=== PATIENT | female | born 2000 | race Caucasian/White ===

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

== ENCOUNTER 2020-04-07 11:09 | Emergency (ER) | payer OTHER ==
[2020-04-07] MEDS ORDERED: Sodium Chloride 0.9% 10 ML Syringe FLUSH PRN (11:23)
[2020-04-07] MEDS ORDERED: Lactated Ringers 1,000 ML IV ONE (11:23)
[2020-04-07] MEDS ORDERED: Ondansetron 4 MG/2 ML SDV IVPUSH ONE (11:24)
[2020-04-07] MEDS ORDERED: fentaNYL 100 MCG/2 ML SDV IVPUSH ONE ×2 (11:24→12:10)
--- NOTE | 2020-04-07 11:29 | EDM.PDOC ---
ED HPI GENERAL MEDICAL PROBLEM - General Chief Complaint: Abdominal Pain Stated Complaint: STOMACH PAIN Time Seen by Provider: 04/07/20 11:18 Source of Information: Reports: Patient - History of Present Illness INITIAL COMMENTS - FREE TEXT/NARRATIVE: Denisse is a 20 y/o female who comes to the ER with complaints of RLQ abdominal pain that started about 30 minutes prior to arrival. She rates the pain 9/10 and sharp and constant. She has been having irregular vaginal bleeding for the last 2 weeks. She is currently on OCPs and has been for the last 13 months. She is nauseated, but has not vomited. No fever. Right Lower Abdomen Pain Score (Numeric/FACES): 9 - Related Data Allergies Allergy/AdvReac Type Severity Reaction Status Date / Time Sulfa (Sulfonamide Allergy Hives Verified 04/07/20 11:23 Antibiotics) Home Meds: Home Meds FLUoxetine HCl [Prozac] 20 mg PO DAILY 04/07/20 [History] Hydrocodone/Acetaminophen [Hydrocodon-Acetaminophen 5-325] 1 - 2 each PO Q6H #30 tablet 04/07/20 [Rx] Ondansetron [Ondansetron ODT] 4 mg PO Q6H PRN #15 tab.rapdis 04/07/20 [Rx] Tamsulosin [Flomax] 0.4 mg PO DAILY #30 cap.er 04/07/20 [Rx] Past Medical History - Past Health History Medical/Surgical History: Denies Medical/Surgical History Psychiatric History: Reports: Depression Review of Systems - Review of Systems Review Of Systems: See Below Constitutional: Reports: No Symptoms Eyes: Reports: No Symptoms Ears: Reports: No Symptoms Nose: Reports: No Symptoms Mouth/Throat: Reports: No Symptoms Respiratory: Reports: No Symptoms Cardiovascular: Reports: No Symptoms GI/Abdominal: Reports: Abdominal Pain, Nausea Genitourinary: Reports: Vaginal Bleeding Musculoskeletal: Reports: No Symptoms Skin: Reports: No Symptoms Neurological: Reports: No Symptoms Psychiatric: Reports: No Symptoms ED EXAM, GENERAL - Physical Exam Exam: See Below General Appearance: Alert, WD/WN, No Apparent Distress (Young adult female, appears to be in pain and holding her abdomen when walking.) Ears: Hearing Grossly Normal Nose: Normal Inspection Throat/Mouth: Normal Voice Head: Atraumatic, Normocephalic Respiratory/Chest: No Respiratory Distress, Lungs Clear, Normal Breath Sounds Cardiovascular: Normal Peripheral Pulses, Regular Rate, Rhythm GI/Abdominal: Soft, Guarding, Tender (RUQ/RLQ). No: Mass (Female) Exam: Deferred Rectal (Female) Exam: Deferred Back Exam: CVA Tenderness (R) (mild) Extremities: Normal Inspection Neurological: Alert, Oriented, CN II-XII Intact, Normal Cognition Psychiatric: Normal Affect, Normal Mood Skin Exam: Warm, Dry, Intact, Normal Color Lymphatic: No Adenopathy Course - Vital Signs Text/Narrative:: 1118 The patient was seen by the [facility]. Labs ordered. She was given a liter of LR, Fentanyl 100mcg IVP and Zofran 4 mg IVP. 1210 Pain returning now. Toradol 30mg IVP and Fentanyl 50mcg IVP ordered. CT ordered due to pain and no US available. 1315 CT results reviewed, note 3.5mm renal calculus in the right distal ureter. Results discussed with patient. Will put her on Flomax and pain meds and then discharge to home. As far as the irregular vaginal bleeding, her HCG is negative today. She is advised to continue OCPs and if the irregular bleeding persists into her next cycle, to follow up with her OB provider as she may need a pelvic US. She was given discharge instructions and left the ER in stable condition after written instructions were given. Last Recorded V/S: Last Vital Signs Temp 36.7 C 04/07/20 11:13 Pulse 89 04/07/20 11:13 Resp 18 04/07/20 11:13 BP 118/83 04/07/20 11:13 Pulse Ox 100 04/07/20 11:13 - Orders/Labs/Meds Orders: Active Orders 24 hr Category Date Time Status CULTURE URINE [RM] Stat Lab 04/07/20 11:43 Received Sodium Chloride 0.9% [Saline Flush] Med 04/07/20 11:23 Active 10 ml FLUSH ASDIRECTED PRN Saline Lock Insert [OM.PC] Stat Oth 04/07/20 11:23 Ordered Medication Orders Sodium Chloride (Saline Flush) 10 ml FLUSH ASDIRECTED PRN PRN Reason: Keep Vein Open Labs: Laboratory Tests 04/07/20 04/07/20 04/07/20 Range/Units 11:40 11:40 11:43 WBC 6.9 (4.0-10.0) x10^3/uL RBC 4.06 (4.00-5.50) x10^6/uL Hgb 12.3 D (12.0-16.0) g/dL Hct 36.4 (33.0-47.0) % MCV 89.7 D (78.0-93.0) fL MCH 30.3 (26.0-32.0) pg MCHC 33.8 (32.0-36.0) g/dL RDW Coeff of [place] 12.7 (10.0-15.0) % Plt Count 276 (130-400) x10^3/uL Neut % (Auto) 60.2 (50.0-80.0) % Lymph % (Auto) 28.1 (25.0-50.0) % [place] % (Auto) 6.2 (2.0-11.0) % Eos % (Auto) 5.4 H (0.0-4.0) % Baso % (Auto) 0.1 L (0.2-1.2) % Sodium 139 (136-145) mmol/L Potassium 3.6 (3.5-5.1) mmol/L Chloride 104 (98-107) mmol/L Carbon Dioxide 28 (21-32) mmol/L Anion Gap 10.6 (10-20) mmol/L BUN 9 (7-18) mg/dL Creatinine 1.0 (0.55-1.02) mg/dL Est Cr Clr Drug Dosing TNP Estimated GFR (MDRD) > 60 Glucose 81 (74-106) mg/dL Calcium 8.9 (8.5-10.1) mg/dL Corrected Calcium 9.14 (8.5-10.1) mg/dL Total Bilirubin 0.4 (0.2-1.0) mg/dL AST 16 (15-37) U/L ALT 19 (14-59) U/L Alkaline Phosphatase 43 L (46-116) U/L Total Protein 7.5 (6.4-8.2) g/dL Albumin 3.7 (3.4-5.0) g/dL Globulin 3.8 Albumin/Globulin Ratio 0.97 Urine Color Yellow (YELLOW) Urine Appearance Turbid H (CLEAR) Urine pH 7.0 (5.0-8.0) Ur Specific [employer] 1.025 Urine Protein Trace H (NEGATIVE) mg/dL Urine Glucose (UA) Negative (NEGATIVE) mg/dL Urine Ketones Negative (NEGATIVE) mg/dL Urine Occult Blood Moderate H (NEGATIVE) Urine Nitrite Negative (NEGATIVE) Urine Bilirubin Negative (NEGATIVE) Urine Urobilinogen 1.0 (0.2) EU/dL Ur Leukocyte Esterase Trace H (NEGATIVE) U Hyaline Cast (Auto) Few Urine RBC 5-10 H (NOT SEEN) /HPF Urine WBC 5-10 H (NOT SEEN) /HPF Ur Squamous Epith Cells Many H (NEGATIVE) /HPF Urine Bacteria Rare (NEGATIVE) /HPF Urine Mucus Moderate H (NEGATIVE) /LPF Urine HCG, Qual (NEGATIVE) 04/07/20 Range/Units 11:43 WBC (4.0-10.0) x10^3/uL RBC (4.00-5.50) x10^6/uL Hgb (12.0-16.0) g/dL Hct (33.0-47.0) % MCV (78.0-93.0) fL MCH (26.0-32.0) pg MCHC (32.0-36.0) g/dL RDW Coeff of [place] (10.0-15.0) % Plt Count (130-400) x10^3/uL Neut % (Auto) (50.0-80.0) % Lymph % (Auto) (25.0-50.0) % [place] % (Auto) (2.0-11.0) % Eos % (Auto) (0.0-4.0) % Baso % (Auto) (0.2-1.2) % Sodium (136-145) mmol/L Potassium (3.5-5.1) mmol/L Chloride (98-107) mmol/L Carbon Dioxide (21-32) mmol/L Anion Gap (10-20) mmol/L BUN (7-18) mg/dL Creatinine (0.55-1.02) mg/dL Est Cr Clr Drug Dosing Estimated GFR (MDRD) Glucose (74-106) mg/dL Calcium (8.5-10.1) mg/dL Corrected Calcium (8.5-10.1) mg/dL Total Bilirubin (0.2-1.0) mg/dL AST (15-37) U/L ALT (14-59) U/L Alkaline Phosphatase (46-116) U/L Total Protein (6.4-8.2) g/dL Albumin (3.4-5.0) g/dL Globulin Albumin/Globulin Ratio Urine Color (YELLOW) Urine Appearance (CLEAR) Urine pH (5.0-8.0) Ur Specific [employer] Urine Protein (NEGATIVE) mg/dL Urine Glucose (UA) (NEGATIVE) mg/dL Urine Ketones (NEGATIVE) mg/dL Urine Occult Blood (NEGATIVE) Urine Nitrite (NEGATIVE) Urine Bilirubin (NEGATIVE) Urine Urobilinogen (0.2) EU/dL Ur Leukocyte Esterase (NEGATIVE) U Hyaline Cast (Auto) Urine RBC (NOT SEEN) /HPF Urine WBC (NOT SEEN) /HPF Ur Squamous Epith Cells (NEGATIVE) /HPF Urine Bacteria (NEGATIVE) /HPF Urine Mucus (NEGATIVE) /LPF Urine HCG, Qual Negative (NEGATIVE) Meds: Medications Generic Name Dose Route Start Last Admin Trade Name Freq PRN Reason Stop Dose Admin Sodium Chloride 10 ml 04/07/20 11:23 Saline Flush FLUSH ASDIRECTED PRN Keep Vein Open Discontinued Medications Generic Name Dose Route Start Last Admin Trade Name Freq PRN Reason Stop Dose Admin Fentanyl 50 mcg 04/07/20 11:24 04/07/20 11:42 Sublimaze IVPUSH 04/07/20 11:25 50 mcg ONETIME ONE Administration Fentanyl 50 mcg 04/07/20 12:10 04/07/20 12:16 Sublimaze IVPUSH 04/07/20 12:11 50 mcg ONETIME ONE Administration Lactated Ringer's 1,000 mls @ 999 mls/hr 04/07/20 11:23 04/07/20 11:39 Ringers, Lactated IV 04/07/20 12:23 999 mls/hr ONETIME ONE Administration Iopamidol 100 ml 04/07/20 12:34 04/07/20 12:34 Isovue-300 (61%) IVPUSH 04/07/20 12:35 100 ml ONETIME ONE Administration Ketorolac Tromethamine 30 mg 04/07/20 12:10 04/07/20 12:18 Toradol IVPUSH 04/07/20 12:11 30 mg ONETIME ONE Administration Ondansetron HCl 4 mg 04/07/20 11:24 04/07/20 11:39 Zofran IVPUSH 04/07/20 11:25 4 mg ONETIME ONE Administration - Radiology Interpretation Free Text/Narrative:: 04/07/[address] Abd/Pelvis W-3.5mm calculus in the distal right ureter (See Final Report) Departure - Departure Time of Disposition: 13:19 Disposition: Home, Self-Care 01 Preliminary Cause of *Q: Cardiac Arrest Condition: Good Clinical Impression: Renal calculus, right, Abnormal vaginal bleeding - Discharge Information Prescriptions: Tamsulosin [Flomax] 0.4 mg PO DAILY #30 cap.er Hydrocodone/Acetaminophen [Hydrocodon-Acetaminophen 5-325] 1 - 2 each PO Q6H #30 tablet Ondansetron [Ondansetron ODT] 4 mg PO Q6H PRN #15 tab.rapdis PRN Reason: Nausea Instructions: Kidney Stones, Dysfunctional Uterine Bleeding Referrals: PCP,None [Primary Care Provider] - Forms: ED Department Discharge Sepsis Event Note (ED) - Evaluation Sepsis Screening Result: No Definite Risk - Focused Exam Vital Signs: Vital Signs Temp Pulse Resp BP Pulse Ox 04/07/20 11:13 36.7 C 89 18 118/83 100 - Problem List Review Problem List Initiated/Reviewed/Updated: Yes - My Orders Last 24 Hours: My Active Orders 04/07/20 11:23 Sodium Chloride 0.9% [Saline Flush] 10 ml FLUSH ASDIRECTED PRN Saline Lock Insert [OM.PC] Stat 04/07/20 11:43 CULTURE URINE [RM] Stat - Assessment/Plan Last 24 Hours: My Active Orders 04/07/20 11:23 Sodium Chloride 0.9% [Saline Flush] 10 ml FLUSH ASDIRECTED PRN Saline Lock Insert [OM.PC] Stat 04/07/20 11:43 CULTURE URINE [RM] Stat Assessment:: 1)Renal Calculus 2)Irregular Vaginal Bleeding on OCPs Plan: -Ibuprofen 200mg 2 tablets oral every 6 hours as needed for pain. Use over the counter meds and take this on a scheduled basis while you are having pain.) -Hydrocodone/APAP 5/325mg 1-2 tablets oral every 6 hours as needed for pain #30(Rx) -Tamsulosin 0.4mg oral daily #30 until the kidney stone passes #30(Rx) -Ondanestron 4mg oral very 6 hours as needed for nausea due to pain meds or the pain #15(Rx) -Rest as needed -Strain urine if able and attempt to retrieve the kidney stone -If you are not getting any better over the next 1-2 weeks layo an appt to see your Primary Provider as you may need a Urology consult -In regards to the irregular vaginal bleeding, resume your next pill pack. If the bleeding persists you need to make an appt with your OB provider and may need further testing or a change in your oral contraceptives.
[2020-04-07 12:05] LABS: CHLORIDE,CL 104 mmol/L (98-107); SODIUM,NA 139 mmol/L (136-145)
[2020-04-07] MEDS ORDERED: Ketorolac 30 MG/ML SDV IVPUSH ONE (12:10)
[2020-04-07 12:19] LABS: ANION GAP 10.6 mmol/L (10-20)
[2020-04-07] MEDS ORDERED: Iopamidol 612 MG/ML 100 ML Bottle IVPUSH ONE (12:34)
--- NOTE | 2020-04-07 13:10 | CT ---
[id number] CT/CT Abdomen Pelvis W IV EXAM: ABDOMEN AND PELVIS CT WITH CONTRAST INDICATION: ABDOMINAL PAIN, VAGINAL BLEEDING. Suspect ovarian cyst. COMPARISON: July 25, 2018. DISCUSSION: A 3.5 mm calculus in the distal right ureter results in mild to moderate hydroureteronephrosis. There is an additional tiny nonobstructing intrarenal calculus in the lower pole of the right kidney. A small volume of free fluid in the pelvis is likely physiologic. Scattered follicles within both ovaries. The liver, gallbladder, spleen, pancreas, adrenal glands, left kidney, small bowel, and the appendix are normal in appearance. No adenopathy or free air. IMPRESSION: 1. A 3.5 mm distal right ureteral calculus results in mild to moderate right hydroureteronephrosis. Robert Burgess MD 04/07/20 [id number] Thank you for allowing us to participate in the care of your patient.
== END 2020-04-07 13:43 | disposition home or self-care (01) ==
LOC: VM.ED 11:09
DX: N13.2 Hydronephrosis with renal and ureteral calculous obstruction (principal); F32.9 Major depressive disorder, single episode, unspecified; N93.9 Abnormal uterine and vaginal bleeding, unspecified; Z88.2 Allergy status to sulfonamides; Z79.899 Other long term (current) drug therapy
CPT/HCPCS: 74177; 80053; 81001; 81025; 85025; 87086; 96374; 96375; 96376; 99284; 99284-25; J1885; J2405; J3010; J7120; Q9967

== ENCOUNTER 2020-04-12 16:47 | Emergency (ER) | payer OTHER ==
[2020-04-12] MEDS ORDERED: Sodium Chloride 0.9% 10 ML Syringe FLUSH PRN (17:21)
[2020-04-12] MEDS ORDERED: Ondansetron 4 MG/2 ML SDV IVPUSH ONE (17:22)
[2020-04-12] MEDS ORDERED: HYDROmorphone 1 MG/ML Syringe IVPUSH ONE ×2 (17:22→18:19)
[2020-04-12] MEDS ORDERED: Sodium Chloride 0.9% 1,000 ML IV ONE (17:22)
[2020-04-12] MEDS ORDERED: Ketorolac 15 MG/ML SDV IVPUSH ONE (17:22)
--- NOTE | 2020-04-12 17:59 | EDM.PDOC ---
ED HPI GENERAL MEDICAL PROBLEM - General Stated Complaint: RT FLANK PAIN Time Seen by Provider: 04/12/20 16:55 Source of Information: Reports: Patient, RN History Limitations: Reports: No Limitations - History of Present Illness INITIAL COMMENTS - FREE TEXT/NARRATIVE: Pt. presents to ER with complaints of R sided flank/lower abdominal discomfort. Pt. states that she was diagnosed with a 3.5mm kidney stone in the R distal ureter. She was started on norco 5/325, flomax, and was sent home with a urine strainer. Pt. states that she has been continuing to have some increased discomfort, more now in the lower R abdomen. She feels as though the pain is moving. Denies any fever or chills. No chest pain or shortness of breath. She states that she has been experiencing some nausea/vomiting with this discomfort. Rates pain at "10" on arrival to ER. Onset: Today Location: Reports: Abdomen Quality: Reports: Ache, Sharp Severity: Severe Left Flank Pain Score (Numeric/FACES): 10 - Related Data Allergies Allergy/AdvReac Type Severity Reaction Status Date / Time Sulfa (Sulfonamide Allergy Hives Verified 04/12/20 20:56 Antibiotics) Home Meds: Home Meds FLUoxetine HCl [Prozac] 20 mg PO DAILY 04/07/20 [History] Hydrocodone/Acetaminophen [Hydrocodon-Acetaminophen 5-325] 1 - 2 each PO Q6H #30 tablet 04/07/20 [Rx] Ondansetron [Ondansetron ODT] 4 mg PO Q6H PRN #15 tab.rapdis 04/07/20 [Rx] Tamsulosin [Flomax] 0.4 mg PO DAILY #30 cap.er 04/07/20 [Rx] Past Medical History - Past Health History Medical/Surgical History: Denies Medical/Surgical History Psychiatric History: Reports: Depression ED ROS GENERAL - Review of Systems Review Of Systems: See Below Constitutional: Reports: No Symptoms. Denies: Fever, Chills, Malaise, Weakness, Fatigue HEENT: Reports: No Symptoms Respiratory: Reports: No Symptoms Endocrine: Reports: No Symptoms GI/Abdominal: Reports: Abdominal Pain : Reports: Flank Pain, Pain Musculoskeletal: Reports: No Symptoms Skin: Reports: No Symptoms Neurological: Reports: No Symptoms Psychiatric: Reports: No Symptoms Hematologic/Lymphatic: Reports: No Symptoms Immunologic: Reports: No Symptoms ED EXAM, GENERAL - Physical Exam Exam: See Below Exam Limited By: No Limitations General Appearance: Alert, WD/WN, No Apparent Distress GI/Abdominal: Soft, Non-Tender, No Distention, No Mass (Female) Exam: Deferred Rectal (Female) Exam: Deferred Back Exam: Normal Inspection, Full Range of Motion Extremities: Normal Inspection, Normal Range of Motion, Non-Tender, No Pedal Edema, Normal Capillary Refill Psychiatric: Normal Affect, Normal Mood Skin Exam: Warm, Dry, Intact, Normal Color, No Rash Course - Vital Signs Last Recorded V/S: Last Vital Signs Temp 36.6 C 04/12/20 17:10 Pulse 88 04/12/20 17:10 Resp 16 04/12/20 17:10 BP 111/79 04/12/20 17:10 Pulse Ox 99 04/12/20 17:10 - Orders/Labs/Meds Meds: Medications Discontinued Medications Generic Name Dose Route Start Last Admin Trade Name Freq PRN Reason Stop Dose Admin Hydromorphone HCl 1 mg 04/12/20 17:22 04/12/20 17:48 Dilaudid IVPUSH 04/12/20 17:23 1 mg ONETIME ONE Administration Hydromorphone HCl 1 mg 04/12/20 18:19 04/12/20 18:29 Dilaudid IVPUSH 04/12/20 18:20 1 mg ONETIME ONE Administration Sodium Chloride 1,000 mls @ 1,000 mls/hr 04/12/20 17:22 04/12/20 17:36 Normal Saline IV 04/12/20 18:21 1,000 mls/hr .BOLUS ONE Administration Ketorolac Tromethamine 15 mg 04/12/20 17:22 04/12/20 17:44 Toradol IVPUSH 04/12/20 17:23 15 mg ONETIME ONE Administration Ondansetron HCl 4 mg 04/12/20 17:22 04/12/20 17:42 Zofran IVPUSH 04/12/20 17:23 4 mg ONETIME ONE Administration Sodium Chloride 10 ml 04/12/20 17:21 Saline Flush FLUSH ASDIRECTED PRN Keep Vein Open Departure - Departure Time of Disposition: 19:00 Disposition: Home, Self-Care 01 Clinical Impression: Ureteric colic - Discharge Information Instructions: Kidney Stones, [id number] Referrals: PCP,Not In Area [Primary Care Provider] - Forms: ED Department Discharge Additional Instructions: Strain urine. Continue with flomax. [place] 5/325mg 1-2 every 4-6 hours as needed for pain. Drink plenty of fluids. If you are continuing to have severe discomfort, either return to ER or go to either hospital in [place], as they have urology services there. I am hoping that you are near passing this stone, based on where the pain is located. - Problem List Review Problem List Initiated/Reviewed/Updated: Yes - Assessment/Plan Plan: Strain urine. Continue with flomax. Paradise 5/325mg 1-2 every 4-6 hours as needed for pain. Drink plenty of fluids. If you are continuing to have severe discomfort, either return to ER or go to either hospital in [place], as they have urology services there. I am hoping that you are near passing this stone, based on where the pain is located.
== END 2020-04-12 18:45 | disposition home or self-care (01) ==
LOC: VM.ED 16:47
DX: N23 Unspecified renal colic (principal); F32.9 Major depressive disorder, single episode, unspecified; Z88.2 Allergy status to sulfonamides; Z79.899 Other long term (current) drug therapy
CPT/HCPCS: 96374; 96375; 96376; 99283; J1170; J1885; J2405; J7030

== ENCOUNTER 2020-11-15 04:30 | Emergency (ER) | payer OTHER ==
[2020-11-15] MEDS ORDERED: Dicyclomine 10 MG Cap PO ONE (04:51)
[2020-11-15] MEDS: Lactated Ringers 1,000 ML IV ONE ×3 (05:15→09:30)
[2020-11-15] MEDS: Ondansetron 4 MG/2 ML SDV IV ONE (05:20)
[2020-11-15] MEDS: diphenhydrAMINE 50 MG/ML SDV IVPUSH ONE ×2 (05:22→07:22)
[2020-11-15 05:42] LABS: CHLORIDE,CL 105 mmol/L (98-107); SODIUM,NA 142 mmol/L (136-145)
[2020-11-15 05:44] LABS: ANION GAP 18.1 mmol/L (5-15)
[2020-11-15] MEDS: Dicyclomine 10 MG Cap PO ONE (06:36)
--- NOTE | 2020-11-15 07:13 | EDM.PDOC ---
ED HPI GENERAL MEDICAL PROBLEM - General Chief Complaint: Gastrointestinal Problem Stated Complaint: N/V, diarrhea Time Seen by Provider: 11/15/20 04:45 Source of Information: Reports: Patient History Limitations: Reports: No Limitations - History of Present Illness INITIAL COMMENTS - FREE TEXT/NARRATIVE: Patient comes emergency department today from home with complaints of diarrhea nausea and vomiting. This patient has had quite a few bouts of diarrhea very liquidy stools over the past 3 days. She then started complaining of nausea and vomiting throughout the night. She had vomited every 15 to 20 minutes at home. Every time that she would throw something up she would try to drink something and then she would return to vomiting again. She has had no fever no chills. No loss of taste or smell. No cough congestion shortness of breath. No chest pain. No weakness dizziness lightheadedness. No abdominal pain other than when she is having a bout of either diarrhea and/or vomiting. No surgeries in her abdomen in the past. No hematuria dysuria or urinary frequency. No flank pain. No weakness dizziness lightheadedness. No palpitations. No syncope. No black or tarry or bloody diarrhea. She has not been on any antibiotics recently. She has not traveled anywhere recently. upper abdomen Pain Score (Numeric/FACES): 8 - Related Data Allergies Allergy/AdvReac Type Severity Reaction Status Date / Time Sulfa (Sulfonamide Allergy Hives Verified 11/15/20 04:48 Antibiotics) Home Meds: Home Meds FLUoxetine HCl [Prozac] 20 mg PO DAILY 04/07/20 [History] Ondansetron [Ondansetron Odt] 4 mg PO TID PRN #12 tab.rapdis 11/15/20 [Rx] Past Medical History - Past Health History Medical/Surgical History: Denies Medical/Surgical History Genitourinary History: Reports: Renal Calculus Psychiatric History: Reports: Depression Social & Family History - Tobacco Use Tobacco Use Status *Q: Unknown Ever Used Tobacco Second Hand Smoke Exposure: No ED ROS GENERAL - Review of Systems Review Of Systems: Comprehensive ROS is negative, except as noted in HPI. ED EXAM, GI/ABD - Physical Exam Exam: See Below Exam Limited By: No Limitations General Appearance: Alert, WD/WN Eyes: Bilateral: EOMI Ears: Normal External Exam Nose: Normal Inspection Throat/Mouth: No: Normal Inspection (Oral mucosa is quite dry) Head: Atraumatic, Normocephalic Neck: Normal Inspection, Supple Respiratory/Chest: No Respiratory Distress, Lungs Clear, Normal Breath Sounds, No Accessory Muscle Use, Chest Non-Tender Cardiovascular: Normal Peripheral Pulses, Regular Rate, Rhythm GI/Abdominal Exam: Normal Bowel Sounds, Soft, Non-Tender, No Distention, No Abnormal Bruit, No Mass Back Exam: Normal Inspection, Full Range of Motion Extremities: Normal Inspection, Normal Range of Motion, Non-Tender, No Pedal Edema, Normal Capillary Refill Neurological: Alert, Oriented, Normal Cognition, No Motor/Sensory Deficits Psychiatric: Normal Affect, Normal Mood Skin Exam: Dry, Intact, No Rash, Cool, Pallor Course - Vital Signs Last Recorded V/S: Last Vital Signs Temp 96.9 F 11/15/20 04:30 Pulse 100 11/15/20 04:30 Resp 16 11/15/20 04:30 BP 113/65 11/15/20 04:30 Pulse Ox 98 11/15/20 04:30 - Orders/Labs/Meds Labs: Laboratory Tests 11/15/20 11/15/20 11/15/20 Range/Units 05:15 05:15 05:55 WBC 10.1 H (4.0-10.0) x10^3/uL RBC 4.12 (4.00-5.50) x10^6/uL Hgb 12.9 (12.0-16.0) g/dL Hct 36.5 (33.0-47.0) % MCV 88.6 (78.0-93.0) fL MCH 31.3 (26.0-32.0) pg MCHC 35.3 (32.0-36.0) g/dL RDW Coeff of Charles 12.1 (10.0-15.0) % Plt Count 321 (130-400) x10^3/uL Neut % (Auto) 63.9 (50.0-80.0) % Lymph % (Auto) 24.4 L (25.0-50.0) % [place] % (Auto) 9.3 (2.0-11.0) % Eos % (Auto) 2.2 (0.0-4.0) % Baso % (Auto) 0.2 (0.2-1.2) % Sodium 142 (136-145) mmol/L Potassium 4.1 (3.5-5.1) mmol/L Chloride 105 (98-107) mmol/L Carbon Dioxide 23 (21-32) mmol/L Anion Gap 18.1 H (5-15) mmol/L BUN 12 (7-18) mg/dL Creatinine 1.0 (0.55-1.02) mg/dL Est Cr Clr Drug Dosing 73.61 mL/min Estimated GFR (MDRD) > 60 Glucose 112 H (70-99) mg/dL Calcium 8.7 (8.5-10.1) mg/dL Corrected Calcium 8.9 (8.5-10.1) mg/dL Magnesium 1.9 (1.8-2.4) mg/dL Total Bilirubin 0.5 (0.2-1.0) mg/dL AST 14 L (15-37) U/L ALT 17 (14-59) U/L Alkaline Phosphatase 52 (46-116) U/L Total Protein 7.5 (6.4-8.2) g/dL Albumin 3.7 (3.4-5.0) g/dL Globulin 3.8 Albumin/Globulin Ratio 0.97 Lipase 55 L (73-393) U/L Urine Color Yellow (YELLOW) Urine Appearance Clear (CLEAR) Urine pH 5.5 (5.0-8.0) Ur Specific [place] >=1.030 Urine Protein 30 H (NEGATIVE) mg/dL Urine Glucose (UA) Negative (NEGATIVE) mg/dL Urine Ketones Trace H (NEGATIVE) mg/dL Urine Occult Blood Moderate H (NEGATIVE) Urine Nitrite Negative (NEGATIVE) Urine Bilirubin Small H (NEGATIVE) Urine Urobilinogen 0.2 (0.2) EU/dL Ur Leukocyte Esterase Negative (NEGATIVE) Urine RBC 5-10 H (NOT SEEN) /HPF Urine WBC 0-5 (NOT SEEN) /HPF Ur Squamous Epith Cells Occasional H (NOT SEEN) /HPF Amorphous Sediment Many Urine Bacteria Occasional H (NOT SEEN) /HPF Urine Mucus Occasional H (NOT SEEN) /LPF Meds: Medications Discontinued Medications Generic Name Dose Route Start Last Admin Trade Name Freq PRN Reason Stop Dose Admin Dicyclomine HCl 10 mg 11/15/20 04:51 Dicyclomine 10 Mg Cap PO 11/15/20 04:52 ONETIME ONE Dicyclomine HCl 20 mg 11/15/20 04:52 11/15/20 06:36 Dicyclomine 10 Mg Cap PO 11/15/20 04:53 20 mg ONETIME ONE Administration Diphenhydramine HCl 12.5 mg 11/15/20 04:50 11/15/20 05:22 Diphenhydramine 50 Mg/Ml Sdv IVPUSH 11/15/20 04:51 12.5 mg ONETIME ONE Administration Diphenhydramine HCl 12.5 mg 11/15/20 07:10 11/15/20 07:22 Diphenhydramine 50 Mg/Ml Sdv IVPUSH 11/15/20 07:11 12.5 mg ONETIME ONE Administration Lactated Ringer's 1,000 mls @ 999 mls/hr 11/15/20 04:50 11/15/20 05:15 Ringers, Lactated IV 11/15/20 05:50 999 mls/hr ONETIME ONE Administration Promethazine HCl 12.5 mg/ 100.5 mls @ 400 mls/hr 11/15/20 07:10 11/15/20 07:22 Sodium Chloride IV 11/15/20 07:25 400 mls/hr ONETIME ONE Administration Lactated Ringer's 1,000 mls @ 999 mls/hr 11/15/20 07:11 11/15/20 07:22 Ringers, Lactated IV 11/15/20 08:11 999 mls/hr ONETIME ONE Administration Lactated Ringer's 1,000 mls @ 999 mls/hr 11/15/20 09:23 11/15/20 09:30 Ringers, Lactated IV 11/15/20 10:23 999 mls/hr ONETIME ONE Administration Ondansetron HCl 4 mg 11/15/20 04:50 11/15/20 05:20 Ondansetron 4 Mg/2 Ml Sdv IV 11/15/20 04:51 4 mg ONETIME ONE Administration Promethazine HCl Confirm 11/15/20 07:27 11/15/20 10:26 Promethazine 25 Mg/Ml Sdv Administered 11/15/20 07:28 Not Given Dose [address] - Re-Assessments/Exams Free Text/Narrative Re-Assessment/Exam: 11/15/20 13:43 IV was established labs are drawn. Benadryl 12.5 mg IV push Zofran 4 mg IV push. 1 L of LR wide open. CBC with a mild elevation in the WBC at 10.1 otherwise normal. CMP with an anion gap at 18.1, glucose of 112 and an AST of 11 otherwise unremarkable. Magnesium 1.9. Lipase 55. Urine specific gravity greater than 1.030, 30+ protein, glucose negative trace ketones moderate amount of blood although she is currently having her menstrual cycle. Nitrite leukocyte negative. Second liter of LR given. Patient continues to be somewhat nauseous gagging and retching. She was given some more Benadryl and Phenergan with resolution. She was given 3 L of LR and she was finally able to void a small amount. She does feel quite a bit better after the above therapy. Her laboratory evaluation is rather unremarkable other than for the blood in there which is most likely from her menstrual cycle and she does not have any signs of renal colic. She is quite dehydrated which we have done well with fluid hydration. We have seen quite a bit of gastroenteritis recently in the emergency department. We will discharge her home with symptomatic management for nausea vomiting and diarrhea. Zofran as well. Discharge directions as below are explained to the patient she was comfortable this plan and her questions were answered. Departure - Departure Time of Disposition: 10:00 Disposition: Home, Self-Care 01 Clinical Impression: Viral gastroenteritis, Dehydration - Discharge Information Prescriptions: Ondansetron [Ondansetron Odt] 4 mg PO TID PRN #12 tab.rapdis PRN Reason: Nausea/Vomiting Instructions: Viral Gastroenteritis, Adult, [id number], Nausea and Vomiting, Adult, [id number], Dehydration, Adult, [id number] Referrals: PCP,None [Primary Care Provider] - Forms: ED Department Discharge Additional Instructions: Zofran 1 tablet three times a day as needed for nausea and vomiting. Rx sent to [facility]. Make sure and drink plenty of fluids especially Gatorade and or Powerade to help replenish electrolytes. If nausea or vomiting develop. Stop all oral intake for about 45 minutes or nausea has resolved and start slowly with SIPS of water small and frequent and slowly advance. No dairy products until symptom free for 48 hrs. Yogurt with live cultures is the only one that is okay which can actually help with the diarrhea. Nothing rich, fatty spicy until symptoms resolve. Once you can tolerate liquids you can start with simple oral solid diet. Bananas rice applesauce toast and yogurt. Slowly advance. Return to the ED if new or worsening symptoms. Follow up with PCP in the next 4-6 days if not improving sooner if worse. Sepsis Event Note (ED) - Evaluation Sepsis Screening Result: No Definite Risk - Focused Exam Vital Signs: Vital Signs Temp Pulse Resp BP Pulse Ox 11/15/20 04:30 96.9 F 100 16 113/65 98
[2020-11-15] MEDS: Promethazine 12.5 MG in Sodium Chloride 0.9% 100 ML IV ONE (07:22)
[2020-11-15] MEDS: Promethazine 25 MG/ML SDV ONE (10:26)
== END 2020-11-15 10:35 | disposition home or self-care (01) ==
LOC: VM.ED 04:30
DX: A08.4 Viral intestinal infection, unspecified (principal); E86.0 Dehydration; Z88.2 Allergy status to sulfonamides; Z79.899 Other long term (current) drug therapy
CPT/HCPCS: 80053; 81001; 83690; 83735; 85025; 96374; 96375; 99284; 99284-25; A9270-GY; J1200; J2405; J2550; J7120